=== PATIENT | male | born 1975 | race Caucasian/White ===

== ENCOUNTER 2021-12-13 09:43 | Emergency (ER) | payer MEDICAID ==
[~2021-12-13] VITALS: Ht 167.6 cm; Wt 83.5 kg
[2021-12-13 09:51] VITALS: BP 181/105
--- NOTE | 2021-12-13 09:55 | NUR ---
SEEN AND EXAMINED BY .
--- NOTE | 2021-12-13 10:08 | NUR ---
LONG SPLINT APPLIED BY NAUTICAL INSTRUMENT MECHANIC.
--- NOTE | 2021-12-13 10:12 | NUR ---
Patient discharged to home in stable condition. Written and verbal after care instructions given. Patient verbalizes understanding of instruction.
== END 2021-12-13 10:15 | disposition home or self-care (01) ==
LOC: ER 09:46
DX: S42.401A Unspecified fracture of lower end of right humerus, initial encounter for closed fracture (principal); X58.XXXA Exposure to other specified factors, initial encounter; Y93.89 Activity, other specified; Y92.89 Other specified places as the place of occurrence of the external cause; Y99.8 Other external cause status